=== PATIENT | female | born 1945 | race Caucasian/White ===

== ENCOUNTER → 2023-11-17 09:10 | Outpatient (REF) | payer MEDICARE, SELFPAY | LOC: RCS 09:10 | PROVIDERS: ATTENDING PHYSICIAN Family Medicine | DX: R07.2 Precordial pain (principal) | CPT/HCPCS: 93306 ==

== ENCOUNTER → 2023-12-14 08:43 | Outpatient (REF) | payer MEDICARE, SELFPAY | LOC: WDC 08:43 | PROVIDERS: ATTENDING PHYSICIAN Surgery; FAMILY PHYSICIAN Family Medicine | DX: R92.2 Inconclusive mammogram (principal); C50.411 Malignant neoplasm of upper-outer quadrant of right female breast | CPT/HCPCS: 76641 ==

== ENCOUNTER → 2024-03-13 08:19 | Outpatient (REF) | payer MEDICARE, SELFPAY | LOC: WDC 08:19 | PROVIDERS: ATTENDING PHYSICIAN Surgery; FAMILY PHYSICIAN Family Medicine | DX: Z12.31 Encounter for screening mammogram for malignant neoplasm of breast (principal) | CPT/HCPCS: 77063; 77067 ==

== ENCOUNTER → 2024-05-28 13:44 | Outpatient (REF) | payer MEDICARE, SELFPAY | LOC: WDC 13:44 | PROVIDERS: ATTENDING PHYSICIAN Family Medicine Geriatric Medicine; FAMILY PHYSICIAN Family Medicine | DX: N63.10 Unspecified lump in the right breast, unspecified quadrant (principal) | CPT/HCPCS: 76642 ==

== ENCOUNTER → 2024-05-29 08:15 | Outpatient (REF) | payer MEDICARE, SELFPAY | LOC: DHCBC/DCA 08:15 | PROVIDERS: ATTENDING PHYSICIAN Internal Medicine Cardiovascular Disease; FAMILY PHYSICIAN Family Medicine | DX: R07.2 Precordial pain (principal) | CPT/HCPCS: 78452; 93017; A9500; J2785 ==

== ENCOUNTER 2025-01-10 16:41 | Emergency (ER) | payer MEDICARE, SELFPAY ==
[2025-01-10 16:44] VITALS: BP 198/96
[2025-01-10 16:56] LABS: % Basophils 0.3 % (0-2); % Eosinophils 0.9 % (0-6); % Immature Granulocytes 0.3 % (0-0.5); % Lymphocytes 23.6 % (20.5-51.1); % Monocytes 8.4 % (1.7-9.3); % Neutrophils 66.5 % (42.2-75.2); Absolute Eosinophils 0.1 10^3/uL (0-0.7); Absolute Lymphocytes 2.8 10^3/uL (1.2-3.4); Absolute Neutrophils 7.8 10^3/uL (1.4-6.5); Hemoglobin 13.4 g/dL (12.0-16.0); Mean Corp Hgb Conc. 33.5 g/dL (33.0-37.0); Mean Corpuscular Hgb 32.4 pg (27.0-31.0); Mean Corpuscular Volume 96.6 fL (81.0-99.0); Mean Platelet Volume 9.6 fL (7.4-10.4); Nucleated Red Blood Cells % 0 %; Platelet Count 264 10^3/uL (130-400); Red Blood Cell Count 4.14 10^6/uL (4.20-5.40); White Blood Cell Count 11.7 10^3/uL (4.8-10.8)
[2025-01-10 17:12] LABS: ALT (SGPT) 13 U/L (0-35); AST (SGOT) 23 U/L (14-36); Alkaline Phosphatase 86 U/L (38-126); Blood Urea Nitrogen 15 mg/dl (7-17); Calcium 9.9 mg/dl (8.4-10.2); Carbon Dioxide 30 mmol/L (22-30); Chloride 101 mmol/L (98-107); Glucose 110 mg/dl (70-99); Lipase 36 U/L (23-300); Potassium 4.1 mmol/L (3.5-5.1); Sodium 138 mmol/L (135-145); Total Protein 6.7 g/dl (6.3-8.2); eGFR > 60.00
[2025-01-10 19:42] VITALS: BP 174/64; BMI 32.5
--- NOTE | 2025-01-10 19:46 | EDRN ---
Pt went to bed Monday and woke up early morning with severe abd pain and vomiting. Pt says she napped during the day and woke with dry mouth so she drank water and abd pain increased. Pt says she usually drinks at least 84 ounces of
water daily but now any water increases the abd pain. Today, pt did not have any vomiting. Pt had normal BM today. Pt went to her doctor today and was sent to ED for a scan. No cp/sob, fever/chills/cough, urinary symptoms, weakness, dizziness.
[2025-01-10] MEDS: LR 1000 IV (20:15)
--- NOTE | 2025-01-10 20:19 | ED.GENMED ---
History of Present Illness
General
Chief Complaint: Abdominal Pain
Time Seen by Provider: 01/10/25 19:32
History of Present Illness
History of Present Illness:
79-year-old female presents to the emergency department for evaluation of nausea vomiting diarrhea for the past 2 days with generalized abdominal pain worsening throughout today. Vomiting has improved however diarrhea is persistent. Unable to
tolerate p.o. fluids today. Pain is poorly localized. Prior abdominal surgeries include x 1. No fevers or night sweats.
Past History
Past History
ED Past Medical History: Hypothyroidism
ED Past Surgical History: and Orthopedic
Social History
Tobacco: Non-smoker
Review of Systems
Review of Systems
Allergies reviewed?: Yes
All Other Systems: ROS reviewed and negative except as documented in HPI and ROS
Phy Exam
Physical Exam
Physical Exam:
GEN: Well appearing, NAD, WDWN
HEENT: Oral mucosa moist, no scleral icterus
Cardiac: Regular rate and rhythm, no murmurs
Lung: No respiratory distress, no tachypnea
Abdomen: Soft, mild generalized tenderness however severe focal right lower quadrant tenderness with positive rebound
MSK: No gross deformity or injuries
Skin: Good color, no pallor or jaundice, no rashes
Neuro: AO x3, moves all extremities freely
Psych: Calm, cooperative
Course
Orders/Labs/Results
Orders:
Orders
01/10/25 16:50
Complete Blood Count/With Diff Urgent
Comprehensive Metabolic Panel Urgent
Lipase Urgent
01/10/25 19:56
CT Abd/Pel (IV only)-DH only Urgent
Comment:
Reason For Exam: RLQ pain
Lactated Ringers [Lr] 1,000 ml IV BOLUS
01/10/25 21:51
Urinalysis Reflex To Culture Urgent
Date Specimen was Collected: 01/10/25
Time Specimen was Collected: 21:44
Urine Microscopic Reflex Cult Urgent
Urine Culture Urgent
MARCO Source: U
Specimen Description:
Date Specimen was Collected: 01/10/25
Time Specimen was Collected: :44
Abnormal Lab Results
01/10/25 01/10/25
16:50 21:51
WBC 11.7 H 10^3/uL
(4.8-10.8)
RBC 4.14 L 10^6/uL
(4.20-5.40)
MCH 32.4 H pg
(27.0-31.0)
Absolute Neuts (auto) 7.8 H 10^3/uL
(1.4-6.5)
Absolute Monos (auto) 1.0 H 10^3/uL
(0.1-0.6)
Glucose 110 H mg/dl
(70-99)
Urine Ketones 1+ A
(Negative)
Ur Occult Blood Reflex 2+ A
(Negative)
Leukocyte Esterase Rfl 1+ A
(Negative)
01/10/25 16:50
01/10/25 16:50
Vital Signs
Initial and Last Documented VS:
Initial Vital Signs
Temp Pulse Resp BP Pulse Ox
97.7 F 97 16 198/96 100
01/10/25 16:44 01/10/25 16:44 01/10/25 16:44 01/10/25 16:44 01/10/25 16:44
Last Documented Vital Signs
Temp Pulse Resp BP Pulse Ox
98.2 F 78 14 202/84 97
01/10/25 19:42 01/10/25 22:55 01/10/25 22:55 01/10/25 22:55 01/10/25 22:55
MDM/Problems Addressed
MDM/Problems Addressed:
Likely self-limited viral syndrome, imaging reveals enteritis, she is able to tolerate p.o. fluids at time of discharge. No indication for hospitalization
*Critical Care Note
Total Time (30-74mins, 75-104mins- exclusive of procedures): Not Applicable
ED Attending Note
-
Portions of this chart may have been created with voice recognition software.� Occasional wrong word or��sound alike� substitutions may have occurred due to the inherent limitations of voice recognition software.
Discharge Plan
Departure
Patient Disposition: Home (Routine Discharge)
Date of Disposition: 01/10/25
Time of Disposition: 22:48
Patient with high blood pressure during this ER visit?: No
Discharge Problem:
Enteritis
Instructions: Viral gastroenteritis in adults
Prescriptions:
New
ondansetron 4 mg tablet,disintegrating
4 mg PO TIDPRN PRN (Reason: nausea/vomiting) Qty: 10 0RF
dicyclomine 20 mg tablet
20 mg PO TID PRN (Reason: abdominal pain) Qty: 10 0RF
No Action
multivitamin 1 EACH tablet
1 ea PO DAILY
levothyroxine 125 MCG tablet
125 mcg PO DAILY
Vitamin C:
10,000 mcg PO DAILY
letrozole 2.5 mg Tablet
2.5 mg PO DAILY
Referrals:
Yumiko Castillo MD [Family Provider] -
Interventions
Interventions:
*Risk Screen - Suicide Last Done: 01/10/25 16:44
*General Assessment Last Done: 01/10/25 16:44
*Neglect/Abuse Screening Last Done: 01/10/25 16:44
*ED- Fall Risk Assessment Last Done: 01/10/25 16:44
*ED COVID-19 Vaccine History Last Done: 01/10/25 16:44
*Nursing Disposition Last Done: 01/10/25 23:05
UG-Xvcqdz-[id number] Assessment Last Done: 01/10/25 19:52
Discharge Date and Time
Discharge Date/Time: 01/10/25 23:05
Print Language: SERBIAN
--- NOTE | 2025-01-10 20:53 | EDRN ---
Pt returned to room by manufacturing technologist who says pt's IV infiltrated and she needs a new IV
[2025-01-10 21:43] VITALS: BP 191/74
[2025-01-10 21:59] LABS: Urine Albumin Negative (Neg - Trace); Urine Bilirubin Negative (Negative); Urine Character Clear (Clear); Urine Color Yellow; Urine Glucose Negative (Negative); Urine Ketone 1+ (Negative); Urine Leukocyte 1+ (Negative); Urine Nitrite Negative (Negative); Urine Occult Blood 2+ (Negative); Urine Urobilinogen Negative (Neg - 1+); Urine pH 6.5 (5.0-9.0)
[2025-01-10 22:07] LABS: Urine Red Blood Cell 0-2 /HPF (0-2); Urine Squamous Cell 0-2 /LPF (Few)
[2025-01-10 22:55] VITALS: BP 202/84
[2025-01-10 23:01] VITALS: BP 202/84
--- NOTE | 2025-01-10 23:01 | EDRN ---
Pt's BPs have been elevated in ED. Pt says her BP is always elevated at the doctor's office and that 'it will come down when I go home.' Pt asymptomatic.
== END 2025-01-10 23:05 | disposition home or self-care (01) ==
LOC: EMR 16:41
PROVIDERS: Physician Assistant; EMERGENCY PHYSICIAN Emergency Medicine; FAMILY PHYSICIAN Family Medicine
DX: K52.9 Noninfective gastroenteritis and colitis, unspecified (principal)
CPT/HCPCS: 99285; 96360; 74177; 80053; 81003; 81015; 83690; 85025; 87086; Q9967

== ENCOUNTER → 2025-03-06 08:38 | Outpatient (REF) | payer MEDICARE, SELFPAY | LOC: RAD 08:38 | PROVIDERS: ATTENDING PHYSICIAN Internal Medicine Hematology & Oncology; FAMILY PHYSICIAN Family Medicine | DX: C50.411 Malignant neoplasm of upper-outer quadrant of right female breast (principal); Z79.811 Long term (current) use of aromatase inhibitors | CPT/HCPCS: 77080 ==

== ENCOUNTER → 2025-03-19 08:45 | Outpatient (REF) | payer MEDICARE, SELFPAY | LOC: WDC 08:45 | PROVIDERS: ATTENDING PHYSICIAN Surgery; FAMILY PHYSICIAN Family Medicine | DX: Z12.31 Encounter for screening mammogram for malignant neoplasm of breast (principal); Z85.3 Personal history of malignant neoplasm of breast; R92.2 Inconclusive mammogram; R92.30 Dense breasts, unspecified | CPT/HCPCS: 77063; 77067 ==

== ENCOUNTER → 2025-03-31 09:02 | Outpatient (REF) | payer MEDICARE, SELFPAY | LOC: HWRCS 09:02 | PROVIDERS: ATTENDING PHYSICIAN Family Medicine | DX: R01.1 Cardiac murmur, unspecified (principal) | CPT/HCPCS: 93306 ==

== ENCOUNTER → 2025-04-08 14:36 | Outpatient (REF) | payer MEDICARE, SELFPAY | LOC: WDC 14:36 | PROVIDERS: ATTENDING PHYSICIAN Surgery; FAMILY PHYSICIAN Family Medicine | DX: R92.2 Inconclusive mammogram (principal) | CPT/HCPCS: 76641 ==

== ENCOUNTER → 2025-04-15 18:44 | Outpatient (REF) | payer MEDICARE, SELFPAY | LOC: MRI 18:44 | PROVIDERS: ATTENDING PHYSICIAN Family Medicine | DX: R51.9 Headache, unspecified (principal); C50.411 Malignant neoplasm of upper-outer quadrant of right female breast; N28.89 Other specified disorders of kidney and ureter | CPT/HCPCS: 70553; A9575 ==

== ENCOUNTER → 2025-05-06 11:45 | Outpatient (REF) | payer MEDICARE, SELFPAY | LOC: MRI 3T 11:45 | PROVIDERS: ATTENDING PHYSICIAN Specialist; FAMILY PHYSICIAN Family Medicine | DX: D41.02 Neoplasm of uncertain behavior of left kidney (principal) | CPT/HCPCS: 74183; A9575 ==